=== PATIENT | female | born 1955 | race Caucasian/White ===

== ENCOUNTER 2017-04-24 11:51 | Observation (INO) ==
[2017-04-24] MEDS ORDERED: Nitroglycerin 1 INCH/GM PACKET TP ONE (11:58)
[2017-04-24] MEDS ORDERED: Ketorolac 30 MG/ML VIAL IVP ONE (11:58)
--- NOTE | 2017-04-24 12:00 | Emergency Department Note ---
Disposition Clinical Impression: Atypical chest pain, Insulin dependent diabetes mellitus Disposition: Admitted As Inpatient Condition: Good Referrals: Jonathan Machado MD [Primary Care Provider] - Forms: ED Satisfaction Letter Chest Pain HPI - General Chief Complaint: ED Chest Pain Stated Complaint: chest pain Time Seen by Provider: 04/24/17 11:53 Source: patient, EMS Mode of arrival: EMS Limitations: no limitations Vital Signs Reviewed: Yes Nursing Notes Reviewed: Yes - History of Present Illness HPI Narrative: Patient relates she started this morning with some generalized weakness and chest pain. She states she was walking and she is having more weakness in her legs, dyspnea on exertion and then a sharp/stabbing mid to left-sided chest pain. He states the chest pain did radiate to her left arm and was associated also with some nausea. She denies diaphoresis. She notes the pain is constant but was worse when she is moving or taking a deep breath. She states this pain is similar to pain she has had before when she has had heart attacks. She relates she has had 4 stents placed in her heart rate between [facility] and [facility] in [place]. She has not been having fevers, chills or any abdominal pains. She is currently in rehabilitation status post a syncopal episode with right humeral fracture. She has a sling on her right arm. She has not had any recurrent fall or injury. She states she currently is being treated for a UTI with Macrobid. She states she has chronic venous stasis in her legs and was also concerned she may be coming down with some cellulitis in her legs again. The patient denies history of DVT or PE in the past. She does report a history of CHF, hypertension, hyperlipidemia, diabetes , coronary artery disease, family history of heart disease and that she was a smoker until 13 months ago. Pt complaint: chest pain Onset (ago): hour(s) (2) Duration: constant Onset: during exertion (Walking) Pain Location: substernal, left chest Severity: moderate Quality: sharp, similar to prior CO Pain Radiation: LUE Improves with: rest Worsens with: exertion, inspiration, movement Associated symptoms: Reports: nausea, dyspnea, leg swelling (Chronic with a venous stasis.). Denies: vomiting, diaphoresis, syncope, palpitations, fever, cough Treatments prior to arrival chest pain: aspirin, nitroglycerin, oxygen - Related Data Home Medications Medication Instructions Recorded Confirmed Nievesonide/Formoterol 160/4.5 2 puff IH BIDR 03/18/15 04/24/17 [Symbicort] Levothyroxine [Synthroid] 100 mcg PO QAM 03/18/15 04/24/17 Tiotropium [Spiriva] 18 mcg IH QAM 03/18/15 04/24/17 metFORMIN [Glucophage] 1,000 mg PO BID 03/18/15 04/24/17 Atorvastatin Calcium [Lipitor] 40 mg PO DAILY 01/01/16 04/24/17 Montelukast [Singulair] 10 mg PO HS 01/01/16 04/24/17 Oxygen 2 l NS AD PRN 02/12/16 04/24/17 Insulin Glargine [Lantus] 80 unit SQ QPM 02/20/16 04/24/17 Insulin Glargine [Lantus] 90 unit SQ QAM 02/20/16 04/24/17 Albuterol Sulfate [Albuterol 2 puff IH Q4HR PRN 03/28/16 04/24/17 Inhaler] Citalopram Hydrobromide 40 mg PO DAILY 03/28/16 04/24/17 [Citalopram HBr] Ipratropium/Albuterol Neb [Duoneb] 3 ml IH Q6H PRN 03/28/16 04/24/17 Raloxifene [Evista] 60 mg PO DAILY 03/28/16 04/24/17 Fenofibrate Nanocrystallized 145 mg PO DAILY 05/12/16 04/24/17 [Tricor] Bumetanide 2 mg PO BID 10/18/16 04/24/17 Nystatin POWDER [Nystop] 1 appl TP BID 11/10/16 04/24/17 metOLazone [Zaroxolyn] 5 mg PO Q48H 11/27/16 04/24/17 Potassium Chloride 20 meq PO BID 02/01/17 04/24/17 Amlodipine Besylate 2.5 mg PO DAILY 03/24/17 04/24/17 Cholecalciferol (D-3) [Vitamin D] 1,000 unit PO DAILY 03/24/17 04/24/17 Metoclopramide [Reglan] 10 mg PO TID 03/24/17 04/24/17 Metoprolol XL (24 HR) Succ [Toprol 50 mg PO DAILY 03/24/17 04/24/17 Xl] Promethazine [Phenergan] 25 mg PO BID PRN 03/24/17 04/24/17 Insulin LISPRO [Humalog Kwikpen 2 - 10 unit SQ TID PRN 04/05/17 04/24/17 U-100] Buprenorphine [Butrans] 1 each TD QWEEK 04/07/17 04/24/17 Fluticasone/Vilanterol [Breo 1 each IH DAILY 04/24/17 04/24/17 Ellipta 200-25 Mcg INH] Nitrofurantoin Monohyd/M-Cryst 100 mg PO BID 04/24/17 04/24/17 [Macrobid 100 mg Capsule] Oxycodone HCl/Acetaminophen 1 each PO Q6H 04/24/17 04/24/17 [Percocet 7.5-325 mg Tablet] Ranitidine HCl [Heartburn Relief] 150 mg PO BID 04/24/17 04/24/17 clonazePAM [Klonopin] 0.5 mg PO TID PRN 04/24/17 04/24/17 Previous Rx's Medication Instructions Recorded Aripiprazole [Abilify] 10 mg PO HS tablet 03/30/16 Clopidogrel [Plavix] 75 mg PO QAM tablet 05/15/16 Aspirin 81 mg PO DAILY #60 tab.chew 11/02/16 Gabapentin [Neurontin] 800 mg PO TID #20 02/20/17 Mag Hydrox/Al Hydrox/Simeth 30 ml PO Q6H PRN 30 Days oral.susp 02/20/17 [Maalox] Magnesium Oxide [Mag-Ox] 400 mg PO BID tab 02/20/17 Isosorbide MONOnitrate (24 HR) 60 mg PO DAILY #30 03/05/17 [Imdur] Lisinopril [Zestril] 5 mg PO DAILY #30 tablet 03/27/17 Tramadol HCl [Ultram] 50 mg PO TID PRN #10 04/08/17 Allergies Allergy/AdvReac Type Severity Reaction Status Date / Time No Known Allergies Allergy Verified 02/17/17 11:28 All systems ED: reviewed and negative except as stated. 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 Absent : tenderness - Respiratory Respiratory exam: Present: normal lung sounds bilaterally. Absent: respiratory distress, wheezes, prolonged expiratory phase - Cardiovascular Cardiovascular exam: Present: regular rate, normal rhythm, normal heart sounds. Absent: tachycardia - Abdominal Exam Abdominal exam: Present: soft, Non-Tender, normal bowel sounds. Absent: tenderness, distention, guarding, rebound, rigidity - Extremities Exam Extremities exam: Present: normal inspection, full ROM, normal capillary refill , pedal edema (1-2+ bilaterally), other (Patient's mild blanching erythema without significant warmth that is symmetric on bilateral lower extremities. There is no proximal tenderness in the calf or thigh.) - Expanded Lower Extremity Exam Neurovascular/Tendon exam: Present: normal capillary refill. Absent: motor deficit, sensory deficit, tendon deficit Gait: not tested/not observed - Back Exam Back exam: Present: normal inspection, full ROM. Absent: tenderness - Neurological Exam Neurological exam: Present: alert, oriented X3 - Psychiatric Psychiatric exam: Present: normal affect, normal mood - Skin Skin exam: Present: warm, dry, intact, normal color. Absent: diaphoresis, pallor Course Course Narrative: 1250: All testing has been discussed with the patient. She states she is currently pain-free and her EKG, d-dimer and troponin are negative. This has also been discussed with Dr. Haas who had like her observed in the emergency department for a second troponin at 1:30 PM. If this too is negative he feels comfortable observing her at this facility. 1410: Return to the second troponin of 0.00, the patient has been coordinated for inpatient observation at this facility. She remains comfortable, pain-free currently has a heart rate of 62, blood pressure 108/55 and a saturation of 95% on her usual 2 L nasal cannula. Vital Signs Temperature 98.6 F 04/24/17 11:54 Pulse Rate 74 04/24/17 11:54 Respiratory Rate 24 04/24/17 11:54 Blood Pressure 113/59 04/24/17 11:54 O2 Sat by Pulse Oximetry 98 04/24/17 11:54 Temperature 98 F 04/24/17 12:53 Pulse Rate 61 04/24/17 13:26 Respiratory Rate 19 04/24/17 13:26 Blood Pressure 92/46 04/24/17 13:26 O2 Sat by Pulse Oximetry 99 04/24/17 13:26 Oxygen Delivery Oxygen Delivery Nasal Cannula Chest Pain - Differential Diagnosis Likely: unstable angina pectoris, atypical chest pain, costalchondritis, chest pain - Medical Records Medical records reviewed: Yes I reviewed the patient's medical records. - Lab Data Lab results reviewed: Yes I reviewed the patient's lab results. Result diagrams: 04/24/17 12:05 04/24/17 12:05 Lab Results 04/24/17 04/24/17 04/24/17 Range/Units 12:05 12:05 12:05 WBC (4.3-11.1) K/mcL RBC (3.82-4.97) M/mcL Hgb (11.5-15.4) g/dL Hct (35.3-44.9) % MCV (83.0-100.0) fL MCH (28.0-33.3) pg MCHC (31.6-35.5) g/dL RDW (11.5-14.5) % Plt Count (140-400) K/mcL MPV (9.4-12.4) fL Immature Gran % (0-4) % Seg Neutrophils % % Lymphocytes % % Monocytes % % Eosinophils % % Basophils % % Neutrophils # (1.6-8.9) K/mcL Lymphocytes # (0.6-4.6) K/mcL Monocytes # (0.0-1.3) K/mcL Eosinophils # (0.0-0.6) K/mcL Basophils # (0.0-0.2) K/mcL PT 10.8 (9.4-12.1) Seconds INR 1.0 APTT 28.3 (26.0-36.0) Seconds D-Dimer 441 (0-500) ng/mLFEU Sodium (136-145) mEq/L Potassium (3.5-4.5) mEq/L Chloride (98-109) mEq/L Carbon Dioxide (19-29) mEq/L BUN (7-20) mg/dL Creatinine (0.57-1.11) mg/dL Est GFR ( Amer) (> 60) Est GFR (Non-Af Amer) (> 60) BUN/Creatinine Ratio (6-26) Glucose (70-99) mg/dL Calculated Osmolality (280-300) Calcium (8.6-10.8) mg/dL Troponin I (0-0.03) ng/mL B-Natriuretic Peptide 84 (0-100) pg/mL 04/24/17 04/24/17 04/24/17 Range/Units 12:05 12:05 12:05 WBC 9.0 (4.3-11.1) K/mcL RBC 3.89 (3.82-4.97) M/mcL Hgb 10.1 L (11.5-15.4) g/dL Hct 32.6 L (35.3-44.9) % MCV 83.8 (83.0-100.0) fL MCH 26.0 L (28.0-33.3) pg MCHC 31.0 L (31.6-35.5) g/dL RDW 16.9 H (11.5-14.5) % Plt Count 270 (140-400) K/mcL MPV 11.7 (9.4-12.4) fL Immature Gran % 1.0 (0-4) % Seg Neutrophils % 63.9 % Lymphocytes % 24.8 % Monocytes % 6.2 % Eosinophils % 3.3 % Basophils % 0.8 % Neutrophils # 5.8 (1.6-8.9) K/mcL Lymphocytes # 2.2 (0.6-4.6) K/mcL Monocytes # 0.6 (0.0-1.3) K/mcL Eosinophils # 0.3 (0.0-0.6) K/mcL Basophils # 0.1 (0.0-0.2) K/mcL PT (9.4-12.1) Seconds INR APTT (26.0-36.0) Seconds D-Dimer (0-500) ng/mLFEU Sodium 141 (136-145) mEq/L Potassium 4.6 H (3.5-4.5) mEq/L Chloride 103 (98-109) mEq/L Carbon Dioxide 25 (19-29) mEq/L BUN 38 H (7-20) mg/dL Creatinine 1.06 (0.57-1.11) mg/dL Est GFR ( Amer) > 60 (> 60) Est GFR (Non-Af Amer) 53 L (> 60) BUN/Creatinine Ratio 36 H (6-26) Glucose 153 H (70-99) mg/dL Calculated Osmolality 304 H (280-300) Calcium 9.3 (8.6-10.8) mg/dL Troponin I 0.00 (0-0.03) ng/mL B-Natriuretic Peptide (0-100) pg/mL 04/24/17 Range/Units 13:31 WBC (4.3-11.1) K/mcL RBC (3.82-4.97) M/mcL Hgb (11.5-15.4) g/dL Hct (35.3-44.9) % MCV (83.0-100.0) fL MCH (28.0-33.3) pg MCHC (31.6-35.5) g/dL RDW (11.5-14.5) % Plt Count (140-400) K/mcL MPV (9.4-12.4) fL Immature Gran % (0-4) % Seg Neutrophils % % Lymphocytes % % Monocytes % % Eosinophils % % Basophils % % Neutrophils # (1.6-8.9) K/mcL Lymphocytes # (0.6-4.6) K/mcL Monocytes # (0.0-1.3) K/mcL Eosinophils # (0.0-0.6) K/mcL Basophils # (0.0-0.2) K/mcL PT (9.4-12.1) Seconds INR APTT (26.0-36.0) Seconds D-Dimer (0-500) ng/mLFEU Sodium (136-145) mEq/L Potassium (3.5-4.5) mEq/L Chloride (98-109) mEq/L Carbon Dioxide (19-29) mEq/L BUN (7-20) mg/dL Creatinine (0.57-1.11) mg/dL Est GFR ( Amer) (> 60) Est GFR (Non-Af Amer) (> 60) BUN/Creatinine Ratio (6-26) Glucose (70-99) mg/dL Calculated Osmolality (280-300) Calcium (8.6-10.8) mg/dL Troponin I 0.00 (0-0.03) ng/mL B-Natriuretic Peptide (0-100) pg/mL - Radiology Data Radiology results reviewed: Yes I reviewed the patient's radiology results. Single view chest x-ray is performed. This does not demonstrate evidence for infiltrate, effusion, pneumothorax, foreign body or heart failure. The cardiac silhouette is normal. I do not see abnormality to the osseous structures of the chest. This is on my interpretation. Impressions Chest X-Ray 04/24/17 11:58 IMPRESSION: No acute process. D/ / Jae Patrick MD / Jae Patrick MD Interpreting Provider: Jae Patrick MD - EKG Data EKG attestation: Yes I reviewed and interpreted this EKG. EKG shows normal: sinus rhythm, axis, intervals, QRS complexes, ST-T waves Rate: normal (69) Interpretation: no acute changes Heart Score - Score History: Moderately Suspicious EKG: Normal Age: 45-65 Risk Factors: Equal/Greater than 3 risk factor or history of atherosclerotic disease Troponin: Less than normal limit HEART Score Total: 4
[2017-04-24 12:18] LABS: Basophils # 0.1 K/mcL (0.0-0.2); Basophils % 0.8 %; Eosinophils # 0.3 K/mcL (0.0-0.6); Eosinophils % 3.3 %; Hematocrit 32.6 % (35.3-44.9); Hemoglobin 10.1 g/dL (11.5-15.4); Lymphocytes # 2.2 K/mcL (0.6-4.6); Lymphocytes % 24.8 %; Mean Corpuscular Volume 83.8 fL (83.0-100.0); Mean Platelet Volume 11.7 fL (9.4-12.4); Monocytes # 0.6 K/mcL (0.0-1.3); Monocytes % 6.2 %; Neutrophils # 5.8 K/mcL (1.6-8.9); Platelet Count 270 K/mcL (140-400); Red Blood Count 3.89 M/mcL (3.82-4.97); Red Cell Distribution Width 16.9 % (11.5-14.5); Segmented Neutrophils % 63.9 %
[2017-04-24 12:31] LABS: Prothrombin Time 10.8 Seconds (9.4-12.1)
[2017-04-24 12:32] LABS: BUN/Creatinine Ratio 36 (6-26); Blood Urea Nitrogen 38 mg/dL (7-20); Calcium 9.3 mg/dL (8.6-10.8); Carbon Dioxide 25 mEq/L (19-29); Chloride 103 mEq/L (98-109); Glucose 153 mg/dL (70-99); Osmolality,Calculated 304 (280-300); Potassium 4.6 mEq/L (3.5-4.5); Sodium 141 mEq/L (136-145); eGFR For African Americans > 60 (> 60); eGFR For Non-African Americans 53 (> 60)
[2017-04-24 12:33] LABS: Activated Partial Thrombo Time 28.3 Seconds (26.0-36.0)
[2017-04-24] MEDS ORDERED: traMADol 50 MG TABLET PO PRN (14:51)
[2017-04-24] MEDS ORDERED: D5% in Water 1,000 ML IVC PRN (14:51)
[2017-04-24] MEDS ORDERED: Dextrose Gel 15 GM PO PRN ×2 (14:51)
[2017-04-24] MEDS ORDERED: Naloxone 0.4 MG/ML INJ IVP PRN (14:51)
[2017-04-24] MEDS ORDERED: *HR* Dextrose 50 % in Water (Syg) 50 ML SYRINGE IVP PRN (14:51)
[2017-04-24] MEDS ORDERED: Ondansetron 4 MG/2 ML VIAL IVP PRN (14:51)
[2017-04-24] MEDS ORDERED: MOM Conc 10 ML UD.LIQ PO PRN (14:51)
[2017-04-24] MEDS ORDERED: Acetaminophen 325 MG TABLET PO PRN (14:51)
[2017-04-24] MEDS ORDERED: metOLazone 5 MG TABLET PO SCH (14:51)
[2017-04-24] MEDS: *HR* OxyCODONE/APAP 7.5/325 TABLET PO SCH ×2 (15:37→21:18)
[2017-04-24] MEDS: Gabapentin 400 MG CAPSULE PO SCH ×2 (15:37→21:19)
[2017-04-24] MEDS ORDERED: Ipratropium/Albuterol Neb 3 ML IH PRN (16:00)
[2017-04-24] MEDS: Insulin LISPRO 300 UNITS/3 ML VIAL SQ SCH (16:17)
[2017-04-24] MEDS: clonazePAM 0.5 MG TABLET PO PRN (16:50)
[2017-04-24] MEDS ORDERED: Bumetanide 1 MG TABLET PO SCH (17:00)
[2017-04-24] MEDS ORDERED: NON-FORMULARY MEDICATION 1 EACH EACH (Insulin Glargine [Lantus] 80 UNIT) SQ SCH (18:00)
--- NOTE | 2017-04-24 18:17 | Internal Med History&Physical ---
Date of Encounter: 04/24/17 Time of Encounter: 17:40 Assessment and Plan (1) Chest pain Current visit: No Status: Acute Repeat cardiac enzymes have been ordered. Qualifiers: Chest pain type: unspecified Qualified Code(s): R07.9 - Chest pain, unspecified (2) Anemia Current visit: No Status: Chronic We will order anemia testing in a.m. Qualifiers: Anemia type: unspecified type Qualified Code(s): D64.9 - Anemia, unspecified (3) CAD (coronary artery disease) Current visit: No Status: Chronic Continue present regimen Qualifiers: Coronary Disease-Associated Artery/Lesion type: [place] artery [place] vs. transplanted heart: [place] heart Associated angina: with stable angina Qualified Code(s): I25.118 - Atherosclerotic heart disease of [place] coronary artery with other forms of angina pectoris (4) Chronic diastolic CHF (congestive heart failure) Current visit: No Status: Chronic BN peptide was acceptable at 84 in emergency room. Will reduce Bumex and hold lisinopril since she has azotemia and borderline hypotension. (5) Type 2 diabetes mellitus Current visit: No Status: Chronic Hemoglobin A1c was 8.7% on 04/09/2017. We will continue with Levemir and do Accu-Cheks with SSI. 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 Continue present dose Synthroid Qualifiers: Hypothyroidism type: acquired Qualified Code(s): E03.9 - Hypothyroidism, unspecified Internal Medicine - H&P: HPI Chief complaint: Weakness and chest pain Admitted From: Long-term Nursing Facility Plans for Post Hospital Care: Transfer Senior Living Care History of present illness: Ms. Alcantar is a 61 year old female who was brought to emergency room stating she had a sudden onset of sharp chest pain while ambulating at [facility]. She was given aspirin and nitroglycerin by mouth with minimal relief. She reports she felt weakness in her legs and felt near syncopal. She was evaluated and admitted to MedSurg floor for ongoing care needs. She states she feels improved at the present time. Her cardiovascular history is significant for hypertension and known ASHD status post PR 2005 with a total of 4 coronary stents placed in . She had a heart catheter 03/04/2017 which showed patent mid RCA stent with mild diffuse disease in distal RCA, proximal LAD patent stent, and mild nonobstructive disease in the circumflex. The LVEF was normal at 55%. Echocardiogram done 04/07/2017 shows LVEF of 60-65 % with moderate LV diastolic dysfunction and no significant valvular abnormalities. There was LAE at 4.2 cm. She denies DVT or pulmonary embolus. She states she is pain-free at this time. Past Med Surg Social Fam HX - Past Medical History Medical history: arthritis, CHF, COPD, coronary artery disease, diabetes, GERD, hyperlipidemia, hypertension, osteoporosis, thyroid disease, TIA, venous stasis , other Psychiatric history: anxiety, bipolar, depression, panic disorder - Past Surgical History Surgical History: angioplasty/stent, , cholecystectomy, hysterectomy - Social History Smoking Status: Former smoker Smokeless Tobacco Status: No Alcohol use: none Drug use: none - Family History Brother Adopted: No Family Member Ethnicity: Non- Living Status: Hx Family Cardiac Disorders: Yes Father Adopted: No Family Member Ethnicity: Non- Living Status: Hx Family Cardiac Disorders: Yes (HD, HLD, HTN, PR, Triple Bypass) Hx Family Neurologic Disorders: Yes (Dementia) Mother Adopted: No Family Member Ethnicity: Non- Living Status: Hx Family Cardiac Disorders: Yes (PR, HTN, HLD, Strokes x5) Hx Family Respiratory Disorders: No Hx Family Cancer: No Hx Family GI Disorders: No Hx Family Endocrine Disorder: Yes (DM) Hx Family Neuromuscular Disorders: No Hx Family Neurologic Disorders: Yes (Strokes) Hx Family HEENT Disorders: No Hx Family Autoimmune Disorders: No Internal Medicine - H&P: Meds Budesonide/Formoterol 160/4.5 [Symbicort] 2 puff IH BIDR 03/18/15 [History] Levothyroxine [Synthroid] 100 mcg PO QAM 03/18/15 [History] Tiotropium [Spiriva] 18 mcg IH QAM 03/18/15 [History] metFORMIN [Glucophage] 1,000 mg PO BID 08/24/15 [History] Atorvastatin Calcium [Lipitor] 40 mg PO DAILY 01/01/16 [History] Montelukast [Singulair] 10 mg PO HS 01/01/16 [History] Oxygen 2 l NS AD PRN 02/12/16 [History] Insulin Glargine [Lantus] 80 unit SQ QPM 02/20/16 [History] Insulin Glargine [Lantus] 90 unit SQ QAM 02/20/16 [History] Albuterol Sulfate [Albuterol Inhaler] 2 puff IH Q4HR PRN 03/28/16 [History] Citalopram Hydrobromide [Citalopram HBr] 40 mg PO DAILY 03/28/16 [History] Ipratropium/Albuterol Neb [Duoneb] 3 ml IH Q6H PRN 03/28/16 [History] Raloxifene [Evista] 60 mg PO DAILY 03/28/16 [History] Aripiprazole [Abilify] 10 mg PO HS tablet 03/30/16 [Rx] Fenofibrate Nanocrystallized [Tricor] 145 mg PO DAILY 05/12/16 [History] Clopidogrel [Plavix] 75 mg PO QAM tablet 05/15/16 [Rx] Bumetanide 2 mg PO BID 10/18/16 [History] Aspirin 81 mg PO DAILY #60 tab.chew 11/02/16 [Rx] Nystatin POWDER [Nystop] 1 appl TP BID 11/10/16 [History] metOLazone [Zaroxolyn] 5 mg PO Q48H 11/27/16 [History] Potassium Chloride 20 meq PO BID 02/01/17 [History] Gabapentin [Neurontin] 800 mg PO TID #20 02/20/17 [Rx] Mag Hydrox/Al Hydrox/Simeth [Maalox] 30 ml PO Q6H PRN 30 Days oral.susp [Rx] Magnesium Oxide [Mag-Ox] 400 mg PO BID tab 02/20/17 [Rx] Isosorbide MONOnitrate (24 HR) [Imdur] 60 mg PO DAILY #30 03/05/17 [Rx] Amlodipine Besylate 2.5 mg PO DAILY 03/24/17 [History] Cholecalciferol (D-3) [Vitamin D] 1,000 unit PO DAILY 03/24/17 [History] Metoclopramide [Reglan] 10 mg PO TID 03/24/17 [History] Metoprolol XL (24 HR) Succ [Toprol Xl] 50 mg PO DAILY 03/24/17 [History] Promethazine [Phenergan] 25 mg PO BID PRN 03/24/17 [History] Lisinopril [Zestril] 5 mg PO DAILY #30 tablet 03/27/17 [Rx] Insulin LISPRO [Humalog Kwikpen U-100] 2 - 10 unit SQ TID PRN 04/05/17 [History] Buprenorphine [Butrans] 1 each TD QWEEK 04/07/17 [History] Tramadol HCl [Ultram] 50 mg PO TID PRN #10 04/08/17 [Rx] Fluticasone/Vilanterol [Breo Ellipta 200-25 Mcg INH] 1 each IH DAILY 04/24/17 [ History] Nitrofurantoin Monohyd/M-Cryst [Macrobid 100 mg Capsule] 100 mg PO BID 04/24/17 [History] Oxycodone HCl/Acetaminophen [Percocet 7.5-325 mg Tablet] 1 each PO Q6H 04/24/17 [History] Ranitidine HCl [Heartburn Relief] 150 mg PO BID 04/24/17 [History] clonazePAM [Klonopin] 0.5 mg PO TID PRN 04/24/17 [History] 3 Allergy/AdvReac Type Severity Reaction Status Date / Time No Known Allergies Allergy Verified 02/17/17 11:28 All Systems PM: A 10-system review of systems was performed and is negative for pertinent findings except as documented above in the HPI. Review of systems: Gen.: She states her weight has been stable past few months Cardiovascular: As per history of present illness Respiratory: She smoked from age 17 until quitting approximately one year ago. She smoked up to 2 packs per day. She has a diagnosis of COPD and wears oxygen at bedtime and when necessary during the daytime. She does not presently take prednisone but states she used prednisone extensively over the past several years. GI: She has had cholecystectomy. She denies disorders of her liver or exocrine pancreas : She has had multiple UTIs. She was unaware she has azotemia on most recent labs. Neurologic: She denies large distribution strokes or seizures. She has diabetic gastropathy. Endocrine: She was diagnosed with DM 2 approximately 1996. She has hypothyroidism and hyperlipidemia Hematology/oncology: She was unaware she had anemia. She denies internal malignancies. Psychiatric: She has anxiety and bipolar disorder Musk skeletal: She has DJD and osteoporosis. She sustained an impacted right humerus fracture approximately 2 weeks ago from a syncope associated fall. She was treated nonoperatively but states she is scheduled to see the orthopedist in a few days. - Constitutional Vitals: Temp Pulse Resp BP Pulse Ox 97.8 F 64 19 97/56 94 04/24/17 15:46 04/24/17 15:46 04/24/17 15:46 04/24/17 15:46 04/24/17 15:46 Exam: Gen.: She is a well-developed overweight female who appears in no acute distress at present time. HEENT: Head is atraumatic and normocephalic. Eyes: EOMI. There is no scleral icterus. Mouth: Mucosa is moist. Neck: Supple and nontender. There is no thyromegaly or adenopathy noted. Heart: Regular without murmurs gallops or ectopics Lungs: No wheezes or crackles are heard. She has diminished breath sounds diffusely. Abdomen: Soft and nontender. No masses or guarding are noted. Extremities: There is no cyanosis edema or clubbing noted. Her right arm is in an immobilizing sling. She has mild DJD changes of her hands. Neurologic: Mental status: She is talkative and a good historian. Cranial nerves: Smile is symmetric. Forehead wrinkles bilaterally. Tongue protrudes midline. EOMI. Motor: There is no pronator drift. Cerebellar: Finger to nose is intact with the left hand. The right arm is immobilized in a sling. Skin: Warm and dry. Internal Med - H&P Results - Labs CBC & Chem 7: 04/24/17 12:05 04/24/17 12:05 - VTE Documentation of Mechanical Device: Graduated compression elastic hosiery
[2017-04-24] MEDS ORDERED: Insulin DETEMIR 100 UNIT/ML X5UNITS SQ SCH (21:00)
[2017-04-24] MEDS ORDERED: Insulin LISPRO 300 UNITS/3 ML VIAL SQ SCH (21:00)
[2017-04-24] MEDS ORDERED: Famotidine 20 MG TABLET PO SCH (21:00)
[2017-04-24] MEDS ORDERED: ARIPiprazole 5 MG TABLET PO SCH (21:00)
[2017-04-24] MEDS: Nitrofurantoin (BID) 100 MG CAPSULE PO SCH (21:18)
[2017-04-24] MEDS: *HR* Metformin 500 MG TABLET PO SCH (21:18)
[2017-04-24] MEDS: Nystatin POWDER 30 GM BOTTLE TP SCH (21:19)
[2017-04-24] MEDS: Magnesium Oxide 400 MG TABLET PO SCH (21:19)
[2017-04-24] MEDS: Budesonide/Formoterol 160/4.5 MDI IH SCH (22:28)
[2017-04-25] MEDS: *HR* OxyCODONE/APAP 7.5/325 TABLET PO SCH ×3 (03:17→11:29)
[2017-04-25] MEDS: clonazePAM 0.5 MG TABLET PO PRN ×2 (04:30→12:26)
[2017-04-25 07:11] VITALS: BP 120/65
[2017-04-25] MEDS: Insulin LISPRO 300 UNITS/3 ML VIAL SQ SCH ×2 (07:51→12:18)
[2017-04-25] MEDS: Nystatin POWDER 30 GM BOTTLE TP SCH (08:21)
[2017-04-25] MEDS: *HR* Metformin 500 MG TABLET PO SCH (08:22)
[2017-04-25] MEDS: Nitrofurantoin (BID) 100 MG CAPSULE PO SCH (08:22)
[2017-04-25] MEDS: Magnesium Oxide 400 MG TABLET PO SCH (08:23)
[2017-04-25] MEDS: Gabapentin 400 MG CAPSULE PO SCH (08:23)
[2017-04-25] MEDS ORDERED: amLODIPine 5 MG TABLET PO SCH (09:00)
[2017-04-25] MEDS ORDERED: Fenofibrate 54 MG TABLET PO SCH (09:00)
[2017-04-25] MEDS ORDERED: Metoprolol XL (24 HR) Succ 50 MG TAB.ER.24H PO SCH (09:00)
[2017-04-25] MEDS ORDERED: Bumetanide 1 MG TABLET PO SCH (09:00)
[2017-04-25] MEDS ORDERED: VILANTEROL IH SCH (09:00)
[2017-04-25] MEDS ORDERED: Insulin DETEMIR 100 UNIT/ML X5UNITS SQ SCH (09:00)
[2017-04-25] MEDS ORDERED: Cholecalciferol (D-3) 1,000 UNIT TABLET PO SCH (09:00)
[2017-04-25] MEDS ORDERED: Aspirin 81 MG TAB.CHEW PO SCH (09:00)
[2017-04-25] MEDS ORDERED: NON-FORMULARY MEDICATION 1 EACH EACH (Insulin Glargine [Lantus] 90 UNIT) SQ SCH (09:00)
[2017-04-25] MEDS ORDERED: Tiotropium 18 MCG inhalation IH SCH (09:00)
[2017-04-25] MEDS ORDERED: FLUTICASONE IH SCH (09:00)
[2017-04-25] MEDS: Budesonide/Formoterol 160/4.5 MDI IH SCH (09:48)
--- NOTE | 2017-04-25 11:22 | Discharge Summary ---
Date of Encounter: 04/25/17 Time of Encounter: 11:00 - Discharge Diagnosis (1) Chest pain Priority: Primary Status: Resolved Qualifiers: Chest pain type: unspecified Qualified Code(s): R07.9 - Chest pain, unspecified (2) Anemia Priority: Secondary Status: Chronic Qualifiers: Anemia type: unspecified type Qualified Code(s): D64.9 - Anemia, unspecified (3) CAD (coronary artery disease) Priority: Secondary Status: Chronic Qualifiers: Coronary Disease-Associated Artery/Lesion type: [place] artery [place] vs. transplanted heart: [place] heart Associated angina: with stable angina Qualified Code(s): I25.118 - Atherosclerotic heart disease of [place] coronary artery with other forms of angina pectoris (4) Chronic diastolic CHF (congestive heart failure) Priority: Secondary Status: Chronic (5) Type 2 diabetes mellitus Priority: Secondary Status: Chronic Qualifiers: Diabetes mellitus complication status: with neurologic complications Diabetes mellitus complication detail: with polyneuropathy Diabetes mellitus chcf insulin use: with chcf use Qualified Code(s): E11.42 - Type 2 diabetes mellitus with diabetic polyneuropathy; 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 (6) Hypothyroidism Priority: Secondary Status: Chronic Qualifiers: Hypothyroidism type: acquired Qualified Code(s): E03.9 - Hypothyroidism, unspecified (7) HTN (hypertension) Priority: Secondary Status: Chronic Qualifiers: Hypertension type: essential hypertension Qualified Code(s): I10 - Essential (primary) hypertension - Discharge Medications Home Medications: Budesonide/Formoterol 160/4.5 [Symbicort] 2 puff IH BIDR 03/18/15 [History] Levothyroxine [Synthroid] 100 mcg PO QAM 03/18/15 [History] Tiotropium [Spiriva] 18 mcg IH QAM 03/18/15 [History] metFORMIN [Glucophage] 1,000 mg PO BID 03/18/15 [History] Atorvastatin Calcium [Lipitor] 40 mg PO DAILY 01/01/16 [History] Montelukast [Singulair] 10 mg PO HS 01/01/16 [History] Oxygen 2 l NS AD PRN 02/12/16 [History] Insulin Glargine [Lantus] 80 unit SQ QPM 02/20/16 [History] Insulin Glargine [Lantus] 90 unit SQ QAM 02/20/16 [History] Albuterol Sulfate [Albuterol Inhaler] 2 puff IH Q4HR PRN 03/28/16 [History] Citalopram Hydrobromide [Citalopram HBr] 40 mg PO DAILY 03/28/16 [History] Raloxifene [Evista] 60 mg PO DAILY 03/28/16 [History] Aripiprazole [Abilify] 10 mg PO HS tablet 03/30/16 [Rx] Fenofibrate Nanocrystallized [Tricor] 145 mg PO DAILY 05/12/16 [History] Clopidogrel [Plavix] 75 mg PO QAM tablet 05/15/16 [Rx] Aspirin 81 mg PO DAILY #60 tab.chew 11/02/16 [Rx] Nystatin POWDER [Nystop] 1 appl TP BID 11/10/16 [History] Mag Hydrox/Al Hydrox/Simeth [Maalox] 30 ml PO Q6H PRN 30 Days oral.susp [Rx] Isosorbide MONOnitrate (24 HR) [Imdur] 60 mg PO DAILY #30 03/05/17 [Rx] Cholecalciferol (D-3) [Vitamin D] 1,000 unit PO DAILY 03/24/17 [History] Metoclopramide [Reglan] 10 mg PO TID 03/24/17 [History] Metoprolol XL (24 HR) Succ [Toprol Xl] 50 mg PO DAILY 03/24/17 [History] Promethazine [Phenergan] 25 mg PO BID PRN 03/24/17 [History] Insulin LISPRO [Humalog Kwikpen U-100] 2 - 10 unit SQ TID PRN 04/05/17 [History] Tramadol HCl [Ultram] 50 mg PO TID PRN #10 04/08/17 [Rx] Oxycodone HCl/Acetaminophen [Percocet 7.5-325 mg Tablet] 1 each PO Q6H 04/24/17 [History] clonazePAM [Klonopin] 0.5 mg PO TID PRN 04/24/17 [History] Bumetanide 2 mg PO DAILY #0 04/25/17 [Rx] Gabapentin [Neurontin] 400 mg PO TID 365 Days 04/25/17 [Rx] Magnesium Oxide [Mag-Ox] 400 mg PO DAILY #0 tab 04/25/17 [Rx] Nitrofurantoin Monohyd/M-Cryst [Macrobid 100 mg Capsule] 100 mg PO BID 2 Days # 0 04/25/17 [Rx] Potassium Chloride 20 meq PO DAILY #0 04/25/17 [Rx] Ranitidine HCl [Heartburn Relief] 150 mg PO BID PRN #0 04/25/17 [Rx] Allergies/Adverse Reactions: 3 Allergy/AdvReac Type Severity Reaction Status Date / Time No Known Allergies Allergy Verified 02/17/17 11:28 Date of admission: 04/24/17 14:28 Primary care physician: Jonathan Machado MD Consults: 04/24/17 15:53 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 Alcantar is a 61 year old female who was brought to emergency room stating she had a sudden onset of sharp chest pain while ambulating at [facility]. She was given aspirin and nitroglycerin by mouth with minimal relief. She reports she felt weakness in her legs and felt near syncopal. She was evaluated and admitted to [facility] for ongoing care needs. Initial orders were written by the emergency room physician. I saw her on April 24 and performed the history and physical. Repeat cardiac enzymes showed no evidence of myocardial damage. When I saw her I did not think pain was likely be of myocardial ischemic origin. She had no further pain after hospitalization. Anemia testing was ordered with results pending at the time of this dictation. Bumex and lisinopril were held because of azotemia and borderline hypotension. Her blood pressure improved. She will remain off these at discharge and blood pressure and renal function will be monitored at the half-way. On April 25 I felt she was stable for discharge back to [facility] to follow with Dr. Machado. - Time Spent with Patient Total time spent providing and/or coordinating discharge services: - Constitutional Vitals: Temp Pulse Resp BP Pulse Ox 97.6 F 60 14 120/65 95 04/25/17 07:10 04/25/17 07:10 04/25/17 07:10 04/25/17 07:10 04/25/17 09:45 - VTE Documentation of Mechanical Device: Graduated compression elastic hosiery
--- NOTE | 2017-04-25 11:30 | Physician Discharge Referral ---
ExtendedCare Referral Info Transfer To: [facility] Provider in Charge: Waldo Provider in Charge after Transfer: PCP (Jonathan Machado M.D.) - Diagnosis (1) Chest pain Priority: Primary Status: Resolved (2) Anemia Priority: Secondary Status: Chronic (3) CAD (coronary artery disease) Priority: Secondary Status: Chronic (4) Chronic diastolic CHF (congestive heart failure) Priority: Secondary Status: Chronic (5) Type 2 diabetes mellitus Priority: Secondary Status: Chronic (6) Hypothyroidism Priority: Secondary Status: Chronic (7) HTN (hypertension) Priority: Secondary Status: Chronic Prognosis: Good Aware of Diagnosis: Patient Aware of Prognosis: Patient - Transfer Medications Home Medications: Budesonide/Formoterol 160/4.5 [Symbicort] 2 puff IH BIDR 03/18/15 [History] Levothyroxine [Synthroid] 100 mcg PO QAM 03/18/15 [History] Tiotropium [Spiriva] 18 mcg IH QAM 03/18/15 [History] metFORMIN [Glucophage] 1,000 mg PO BID 03/18/15 [History] Atorvastatin Calcium [Lipitor] 40 mg PO DAILY 01/01/16 [History] Montelukast [Singulair] 10 mg PO HS 01/01/16 [History] Oxygen 2 l NS AD PRN 02/12/16 [History] Insulin Glargine [Lantus] 80 unit SQ QPM 02/20/16 [History] Insulin Glargine [Lantus] 90 unit SQ QAM 02/20/16 [History] Albuterol Sulfate [Albuterol Inhaler] 2 puff IH Q4HR PRN 03/28/16 [History] Citalopram Hydrobromide [Citalopram HBr] 40 mg PO DAILY 03/28/16 [History] Raloxifene [Evista] 60 mg PO DAILY 03/28/16 [History] Aripiprazole [Abilify] 10 mg PO HS tablet 03/30/16 [Rx] Fenofibrate Nanocrystallized [Tricor] 145 mg PO DAILY 05/12/16 [History] Clopidogrel [Plavix] 75 mg PO QAM tablet 05/15/16 [Rx] Aspirin 81 mg PO DAILY #60 tab.chew 11/02/16 [Rx] Nystatin POWDER [Nystop] 1 appl TP BID 11/10/16 [History] Mag Hydrox/Al Hydrox/Simeth [Maalox] 30 ml PO Q6H PRN 30 Days oral.susp [Rx] Isosorbide MONOnitrate (24 HR) [Imdur] 60 mg PO DAILY #30 03/05/17 [Rx] Cholecalciferol (D-3) [Vitamin D] 1,000 unit PO DAILY 03/24/17 [History] Metoclopramide [Reglan] 10 mg PO TID 03/24/17 [History] Metoprolol XL (24 HR) Succ [Toprol Xl] 50 mg PO DAILY 03/24/17 [History] Promethazine [Phenergan] 25 mg PO BID PRN 03/24/17 [History] Insulin LISPRO [Humalog Kwikpen U-100] 2 - 10 unit SQ TID PRN 04/05/17 [History] Tramadol HCl [Ultram] 50 mg PO TID PRN #10 04/08/17 [Rx] Oxycodone HCl/Acetaminophen [Percocet 7.5-325 mg Tablet] 1 each PO Q6H 04/24/17 [History] clonazePAM [Klonopin] 0.5 mg PO TID PRN 04/24/17 [History] Bumetanide 2 mg PO DAILY #0 04/25/17 [Rx] Gabapentin [Neurontin] 400 mg PO TID 365 Days 04/25/17 [Rx] Magnesium Oxide [Mag-Ox] 400 mg PO DAILY #0 tab 04/25/17 [Rx] Nitrofurantoin Monohyd/M-Cryst [Macrobid 100 mg Capsule] 100 mg PO BID 2 Days # 0 04/25/17 [Rx] Potassium Chloride 20 meq PO DAILY #0 04/25/17 [Rx] Ranitidine HCl [Heartburn Relief] 150 mg PO BID PRN #0 04/25/17 [Rx] Allergies/Adverse Reactions: 3 Allergy/AdvReac Type Severity Reaction Status Date / Time No Known Allergies Allergy Verified 02/17/17 11:28 - Respiratory Orders Oxygen / L per min (2 L/m by nasal cannula at bedtime and when necessary during day time to keep sat greater than 90%.) Smoking Cessation: Smoking cessation has been advised. For more information, call the [employer] Tobacco Quit Line at 2-016-YUOZ-NOW. - Lab Orders Lab Orders: Other (include drug levels w/frequency) (BMP, magnesium level in 1 week) - Mobility Orders Ambulate - Rehabiliation Orders Rehab Potential: Good Rehab Orders: Evaluation for Physical Therapy, Evaluation for Occupational Therapy - Diet Orders No Concentrated Sweets CERTIFICATION: I certify that the transfer of the above named patient to an Extended Care Facility is necessary for the continuing treatment of the diagnosis listed. The above information is true and accurate reflection of patient's current condition. Confidential - Redisclosure prohibited without a patient's written consent.
[2017-04-25] MEDS ORDERED: FLUARIX QUAD 2017-18 36MOS UP/PF 0.5 ML SYRINGE IM ONE (11:51)
[2017-04-25 18:04] LABS: % Iron Saturation 5 % (15-50); Iron 26 mcg/dL (50-170); Transferrin 357 mg/dL (180-382)
[2017-04-25 18:28] LABS: Ferritin 17 ng/ml (5-204)
[2017-04-25 18:42] LABS: Folate 6.5 ng/mL (7.0-31.4)
--- NOTE | 2017-04-25 18:42 | Electrocardiograph Report ---
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
== END 2017-04-25 13:16 ==
LOC: INPPIK 11:51 → EMEROOPIK 11:51 → INPPIK 14:45
PROVIDERS: ADMIT Emergency Medicine; ATTEND Internal Medicine

== ENCOUNTER 2020-05-14 09:47 | Inpatient (IN) ==
[2020-05-14] MEDS ORDERED: Naloxone 0.4 MG/ML INJ IVP PRN (09:55)
[2020-05-14] MEDS ORDERED: *HR* Dextrose 50 % in Water (Vial) 50 ML VIAL IVP PRN (09:58)
[2020-05-14] MEDS ORDERED: Dextrose Gel 15 GM/37.5 ML TUBE PO PRN ×2 (09:58)
[2020-05-14] MEDS ORDERED: D5% in Water 1,000 ML IVC PRN (09:58)
[2020-05-14] MEDS: Insulin LISPRO 300 UNITS/3 ML VIAL SQ SCH ×2 (12:31→17:40)
[2020-05-14] MEDS: *HR* HYDROcodone/Acet 5/325 mg TABLET PO PRN ×2 (12:43→20:28)
[2020-05-14] MEDS: Ipratropium/Albuterol Neb 3 ML IH SCH ×3 (14:02→20:48)
[2020-05-14] MEDS ORDERED: Ammonium Lactate 30 APPL/225 GM BOTTLE TP PRN (14:28)
[2020-05-14] MEDS ORDERED: Nitroglycerin 0.4 MG TAB.SUBL SL PRN (14:28)
[2020-05-14] MEDS: Budesonide/Formoterol 160/4.5 1 PUFF INH IH SCH ×2 (14:55→20:48)
[2020-05-14] MEDS: Gabapentin 400 MG CAPSULE PO SCH ×2 (15:25→20:27)
[2020-05-14] MEDS: Nicotine 21 MG PATCH.TD24 TD SCH (15:25)
[2020-05-14] MEDS: Vancomycin 1,500 MG/265 ML IV.SOLN IVPB SCH (15:43)
[2020-05-14] MEDS: Piperacillin/Tazobactam 3.375 GM in 0.9 % Sodium Chloride Mini Bag 100 ML IVPB SCH ×2 (15:44→23:14)
[2020-05-14] MEDS: MethylPREDNISolone 40 MG/ML VIAL IVP SCH (17:40)
[2020-05-14] MEDS: Isosorbide MONOnitrate (24 HR) 60 MG TAB.ER.24H PO SCH (20:27)
[2020-05-14] MEDS: Ranolazine 500 MG TAB.ER.12H PO SCH (20:27)
[2020-05-14] MEDS: Insulin DETEMIR 100 UNIT/ML X5UNITS SQ SCH (20:28)
[2020-05-14] MEDS ORDERED: Sulfamethoxazole/Trimeth DS 1 EACH TABLET PO SCH (21:00)
[2020-05-14] MEDS ORDERED: Furosemide 40 MG/4 ML VIAL IVP SCH (21:00)
[2020-05-14] MEDS ORDERED: Metoprolol 100 MG TABLET PO SCH (21:00)
[2020-05-14] MEDS: Pantoprazole 40 MG VIAL IVP SCH (23:13)
[2020-05-14] MEDS: Furosemide 40 MG TABLET PO SCH (23:14)
[2020-05-15] MEDS: Ipratropium/Albuterol Neb 3 ML IH SCH ×8 (00:46→23:05)
[2020-05-15] MEDS: Vancomycin 1,500 MG/265 ML IV.SOLN IVPB SCH ×2 (03:00→14:45)
[2020-05-15] MEDS: Pantoprazole 40 MG VIAL IVP SCH ×2 (04:58→16:16)
[2020-05-15] MEDS: MethylPREDNISolone 40 MG/ML VIAL IVP SCH ×2 (04:58→16:16)
[2020-05-15] MEDS: *HR* Enoxaparin 40 MG/0.4 ML SYRINGE SQ SCH (04:58)
[2020-05-15] MEDS: Piperacillin/Tazobactam 3.375 GM in 0.9 % Sodium Chloride Mini Bag 100 ML IVPB SCH ×3 (07:39→23:19)
[2020-05-15] MEDS: Ranolazine 500 MG TAB.ER.12H PO SCH ×2 (07:42→20:58)
[2020-05-15] MEDS: Furosemide 40 MG TABLET PO SCH ×2 (07:42→20:58)
[2020-05-15] MEDS: Metoprolol XL (24 HR) Succ 50 MG TAB.ER.24H PO SCH (07:42)
[2020-05-15] MEDS: Isosorbide MONOnitrate (24 HR) 60 MG TAB.ER.24H PO SCH ×2 (07:42→20:59)
[2020-05-15] MEDS: Nicotine 21 MG PATCH.TD24 TD SCH (07:42)
[2020-05-15] MEDS: Gabapentin 400 MG CAPSULE PO SCH ×3 (07:42→20:58)
[2020-05-15] MEDS: Aspirin Enteric Coated 81 MG Tablet PO SCH (07:42)
[2020-05-15] MEDS: Insulin LISPRO 300 UNITS/3 ML VIAL SQ SCH ×3 (07:43→16:17)
[2020-05-15 08:37] LABS: Basophils # 0.1 K/mcL (0.0-0.2); Basophils % 0.6 %; Eosinophils # 0.1 K/mcL (0.0-0.6); Eosinophils % 0.7 %; Hematocrit 39.8 % (35.3-44.9); Hemoglobin 12.1 g/dL (11.5-15.4); Immature Granulocytes % 1.6 % (0-4); Lymphocytes # 0.9 K/mcL (0.6-4.6); Lymphocytes % 8.9 %; Mean Corpuscular HGB Conc 30.4 g/dL (31.6-35.5); Mean Corpuscular Hemoglobin 24.8 pg (28.0-33.3); Mean Corpuscular Volume 81.6 fL (83.0-100.0); Monocytes # 0.4 K/mcL (0.0-1.3); Monocytes % 3.3 %; Neutrophils # 8.9 K/mcL (1.6-8.9); Platelet Count 250 K/mcL (140-400); Red Blood Count 4.88 M/mcL (3.82-4.97); Segmented Neutrophils % 84.9 %; White Blood Count 10.5 K/mcL (4.3-11.1)
[2020-05-15] MEDS: Insulin DETEMIR 100 UNIT/ML X5UNITS SQ SCH (09:15)
[2020-05-15 09:18] LABS: BUN/Creatinine Ratio 25 (6-26); Blood Urea Nitrogen 17 mg/dL (8-23); Calcium 8.4 mg/dL (8.6-10.3); Carbon Dioxide 27 mEq/L (23-29); Chloride 103 mEq/L (98-107); Glucose 265 mg/dL (70-105); Magnesium 1.7 mg/dL (1.6-2.6); Osmolality,Calculated 293 (280-300); Phosphorous 3.4 mg/dL (2.7-4.5); Potassium 4.7 mEq/L (3.5-5.1); Sodium 136 mEq/L (136-145); eGFR For African Americans > 60 (> 60); eGFR For Non-African Americans > 60 (> 60)
[2020-05-15] MEDS: Budesonide/Formoterol 160/4.5 1 PUFF INH IH SCH ×2 (11:14→20:01)
[2020-05-15] MEDS: *HR* HYDROcodone/Acet 5/325 mg TABLET PO PRN ×2 (13:08→20:59)
[2020-05-15 14:13] LABS: C-Reactive Protein 19 mg/L (Less than 10)
[2020-05-15] MEDS: Ondansetron 4 MG/2 ML VIAL IVP PRN (14:37)
[2020-05-15] MEDS: Sucralfate 1 GM TABLET PO SCH ×2 (16:17→20:58)
[2020-05-15] MEDS: lisinopriL 20 MG TABLET PO SCH (16:17)
[2020-05-15] MEDS ORDERED: Insulin DETEMIR 100 UNIT/ML X5UNITS SQ SCH (21:00)
[2020-05-16 02:28] LABS: Basophils % 0.2 %; Eosinophils % 0.3 %; Hematocrit 35.6 % (35.3-44.9); Hemoglobin 11.1 g/dL (11.5-15.4); Immature Granulocytes % 1.9 % (0-4); Lymphocytes # 1.3 K/mcL (0.6-4.6); Lymphocytes % 11.9 %; Mean Corpuscular HGB Conc 31.2 g/dL (31.6-35.5); Mean Corpuscular Hemoglobin 25.2 pg (28.0-33.3); Mean Corpuscular Volume 80.9 fL (83.0-100.0); Mean Platelet Volume 11.1 fL (9.4-12.4); Monocytes # 0.6 K/mcL (0.0-1.3); Monocytes % 5.1 %; Neutrophils # 8.9 K/mcL (1.6-8.9); Platelet Count 247 K/mcL (140-400); Red Cell Distribution Width 21.4 % (11.5-14.5); Segmented Neutrophils % 80.6 %
[2020-05-16 02:32] LABS: BUN/Creatinine Ratio 35 (6-26); Blood Urea Nitrogen 25 mg/dL (8-23); Calcium 8.1 mg/dL (8.6-10.3); Carbon Dioxide 28 mEq/L (23-29); Chloride 99 mEq/L (98-107); Glucose 357 mg/dL (70-105); Osmolality,Calculated 295 (280-300); Potassium 4.6 mEq/L (3.5-5.1); Sodium 133 mEq/L (136-145); eGFR For African Americans > 60 (> 60); eGFR For Non-African Americans > 60 (> 60)
[2020-05-16] MEDS: *HR* HYDROcodone/Acet 5/325 mg TABLET PO PRN ×2 (02:59→10:26)
[2020-05-16] MEDS: Insulin LISPRO 300 UNITS/3 ML VIAL SQ SCH ×3 (03:33→11:58)
[2020-05-16] MEDS: Vancomycin 1,500 MG/265 ML IV.SOLN IVPB SCH (03:33)
[2020-05-16] MEDS: Ipratropium/Albuterol Neb 3 ML IH SCH ×3 (04:13→11:46)
[2020-05-16] MEDS: Pantoprazole 40 MG VIAL IVP SCH (05:51)
[2020-05-16] MEDS: MethylPREDNISolone 40 MG/ML VIAL IVP SCH (05:51)
[2020-05-16] MEDS: *HR* Enoxaparin 40 MG/0.4 ML SYRINGE SQ SCH (05:52)
[2020-05-16 07:19] VITALS: BP 167/63
[2020-05-16] MEDS: Piperacillin/Tazobactam 3.375 GM in 0.9 % Sodium Chloride Mini Bag 100 ML IVPB SCH (07:26)
[2020-05-16] MEDS: Nicotine 21 MG PATCH.TD24 TD SCH (07:27)
[2020-05-16] MEDS: Furosemide 40 MG TABLET PO SCH (07:27)
[2020-05-16] MEDS: lisinopriL 20 MG TABLET PO SCH (07:27)
[2020-05-16] MEDS: Sucralfate 1 GM TABLET PO SCH ×2 (07:27→11:58)
[2020-05-16] MEDS: Aspirin Enteric Coated 81 MG Tablet PO SCH (07:28)
[2020-05-16] MEDS: Metoprolol XL (24 HR) Succ 50 MG TAB.ER.24H PO SCH (07:28)
[2020-05-16] MEDS: Ranolazine 500 MG TAB.ER.12H PO SCH (07:28)
[2020-05-16] MEDS: Gabapentin 400 MG CAPSULE PO SCH ×2 (07:28→14:13)
[2020-05-16] MEDS: Isosorbide MONOnitrate (24 HR) 60 MG TAB.ER.24H PO SCH (07:28)
[2020-05-16] MEDS: Budesonide/Formoterol 160/4.5 1 PUFF INH IH SCH (07:39)
[2020-05-16] MEDS ORDERED: Insulin DETEMIR 100 UNIT/ML X5UNITS SQ SCH (09:00)
[2020-05-16] MEDS: Ondansetron 4 MG/2 ML VIAL IVP PRN (12:56)
[2020-05-18] MEDS ORDERED: BUPRENORPHINE TP SCH (09:00)
== END 2020-05-16 14:30 | disposition home or self-care (01) | DRG 190 ==
LOC: INPPIK
PROVIDERS: ADMIT Family Medicine; ATTEND Family Medicine